=== PATIENT | male | born 1930 | race Asian ===

== ENCOUNTER 2017-09-14 03:47 | Inpatient (IN) | payer OTHER ==
--- NOTE | 2017-09-14 04:28 | EDPHY ---
H & P Time Seen by Provider: 09/14/17 03:51 HPI/ROS: CHIEF COMPLAINT: Shortness of breath HISTORY OF PRESENT ILLNESS: Patient is originally from [place] [facility], in [place] for 5 years, interviewed limited by language. Daughter acted as hot blaster with the consent of patient. Per daughter patient was seen at [facility] for some generalized abdominal pain yesterday, Tuesday, morning. He had had this upper abdominal pain with bloating for about 1 week. Not associated with nausea or vomiting. Some constipation. Per [facility] diagnosed with"gastritis". An ultrasound was ordered for later today at [facility]. Per daughter around 8:00 p.m. Last night patient had episode of shiverring. Prior to arrival his shivering returned and he had audible wheezing and was complaining of shortness of breath. He has never had this problem before. On arrival patient dyspnic with oxygen saturations to 90%. He denies chest pain. REVIEW OF SYSTEMS: Constitutional: No fever, some chills Eyes: No discharge. ENT: No sore throat. Cardiovascular: No chest pain, no palpitations. Respiratory: No cough, shortness of breath present Gastrointestinal: Abdominal pain, bloating. Some constipation. Genitourinary: No dysuria. Musculoskeletal: No back pain. Skin: No rashes. Neurological: No headache. General Appearance: Alert, no distress. Eyes: Pupils equal and round no pallor or injection. ENT, Mouth: Mucous membranes moist. Respiratory: There are no retractions, lungs are clear to auscultation. No wheezes Cardiovascular: Regular rate and rhythm. Gastrointestinal: Abdomen is soft and nontender, no masses, bowel sounds normal. Neurological: Awake and alert, no focal neurologic deficits. Skin: Warm and dry, no rashes. Some discrete raised erythematous lesions to left lower extremity. Musculoskeletal: Neck is supple nontender. Extremities are symmetrical, full range of motion, no edema. Psychiatric: Patient is cooperative, following commands, there is no agitation. Medical/surgical history: Hypertension, biopsy performed on skin lesions on left lower extremity yesterday. No surgeries. Social history: Living in [place] last 5 years. Previously in [facility] country of origin. Nonsmoker. Smoking Status: Never smoked Constitutional: Initial Vital Signs Temperature (C) 37.0 C 09/14/17 03:52 Heart Rate 111 H 09/14/17 03:52 Respiratory Rate 30 H 09/14/17 03:52 Blood Pressure 150/84 H 09/14/17 03:52 O2 Sat (%) 90 L 09/14/17 03:52 O2 Delivery Mode Nasal Cannula O2 (L/minute) 4 Allergies/Adverse Reactions: No Known Allergies Allergy (Unverified 09/14/17 03:51) Home Medications: Medication Instructions Recorded Lisinopril 09/14/17 Medical Decision Making - Diagnostics EKG Interpretation: EKG shows normal sinus rhythm with first-degree AV block and left anterior fascicular block. Rate of 98. No acute ST T-wave changes to suggest ischemia or infarct. Impression abnormal, nonspecific EKG. Imaging Results: Chest x-ray shows cardiomegaly, atelectasis, retrocardiac infiltrates verses other opacities noted. CT scan of chest, abdomen, pelvis shows no PE, likely COPD. Likely cholecystitis with thickened gallbladder wall, edema, hyperemic. No stones. Several small hepatic lesions nonspecific. Bilateral renal cysts. Mediastinal hilar lymphadenopathy. Discussed with Dr. Hong. Imaging: I viewed and interpreted images myself ED Course/Re-evaluation: Re-evaluation after CXR and oxygen placed, patient with no more dyspnea. Told son-in-law he feels better and could go home. 7:10 a.m. discussed with hospitalist, Dr. Delgado, accepted for admission. Also discussed with patient and family need for admit for hypoxia and further evaluation. Differential Diagnosis: Differential diagnosis includes but is not limited to pneumonia, CHF, pulmonary embolism, acute coronary syndrome, cholecystitis, bowel obstruction. After evaluation patient with likely COPD and new oxygen requirement of 4 liters/ minute by nasal cannula. Persistent recurrent abdominal pain likely related to gallbladder disease however no signs of peritonitis, perforation, sepsis. Plan is for admission for further evaluation. Discussed with hospitalist. Transfer arranged. - Data Points Laboratory Results: Laboratory Results 09/14/17 04:10 09/14/17 09/14/17 09/14/17 04:37 04:29 04:10 WBC 9.66 10^3/uL H 10^3/uL (3.80-9.50) RBC 4.19 10^6/uL L 10^6/uL (4.40-6.38) Hgb 13.0 g/dL L g/dL (13.7-17.5) Hct 39.7 % L % (40.0-51.0) MCV 94.7 fL fL (81.5-99.8) MCH 31.0 pg pg (27.9-34.1) MCHC 32.7 g/dL g/dL (32.4-36.7) RDW 12.3 % % (11.5-15.2) Plt Count 149 10^3/uL L 10^3/uL (150-400) MPV 11.2 fL fL (8.7-11.7) Neut % (Auto) 85.3 % H % (39.3-74.2) Lymph % (Auto) 7.9 % L % (15.0-45.0) Reynolds % (Auto) 5.6 % % (4.5-13.0) Eos % (Auto) 0.6 % % (0.6-7.6) Baso % (Auto) 0.2 % L % (0.3-1.7) Nucleat RBC Rel Count 0.0 % % (0.0-0.2) Absolute Neuts (auto) 8.24 10^3/uL H 10^3/uL (1.70-6.50) Absolute Lymphs (auto) 0.76 10^3/uL L 10^3/uL (1.00-3.00) Absolute Monos (auto) 0.54 10^3/uL 10^3/uL (0.30-0.80) Absolute Eos (auto) 0.06 10^3/uL 10^3/uL (0.03-0.40) Absolute Basos (auto) 0.02 10^3/uL 10^3/uL (0.02-0.10) Absolute Nucleated RBC 0.00 10^3/uL 10^3/uL (0-0.01) Immature Gran % 0.4 % % (0.0-1.1) Immature Gran # 0.04 10^3/uL 10^3/uL (0.00-0.10) D-Dimer POC Sodium 137 mEq/L mEq/L (135-145) POC Potassium 4.1 mEq/L mEq/L (3.3-5.0) POC Chloride 101.0 mEq/L mEq/L (97-110) POC Total CO2 22 mEq/L mEq/L (22-31) POC BUN 15 mg/dL mg/dL (7-23) POC Creatinine 1.2 mg/dL mg/dL (0.7-1.3) POC Glucose 132 mg/dL H mg/dL (70-100) POC Calcium 8.6 mg/dL mg/dL (8.5-10.4) POC Total Bilirubin 1.5 mg/dL H mg/dL (0.1-1.4) POC AST 71 IU/L H IU/L (17-59) POC ALT 60 IU/L IU/L (21-72) POC Alk Phosphatase 103 IU/L IU/L (38-126) POC Troponin I 0.01 ng/mL ng/mL (0.00-0.08) NT-Pro-B Natriuret Pep POC Total Protein 7.7 g/dL g/dL (6.3-8.2) POC Albumin 3.3 g/dL L g/dL (3.5-5.0) 09/14/17 09/14/17 04:10 04:10 WBC RBC Hgb Hct MCV MCH MCHC RDW Plt Count MPV Neut % (Auto) Lymph % (Auto) Reynolds % (Auto) Eos % (Auto) Baso % (Auto) Nucleat RBC Rel Count Absolute Neuts (auto) Absolute Lymphs (auto) Absolute Monos (auto) Absolute Eos (auto) Absolute Basos (auto) Absolute Nucleated RBC Immature Gran % Immature Gran # D-Dimer 2.79 ug/mLFEU H ug/mLFEU (0.00-0.50) POC Sodium POC Potassium POC Chloride POC Total CO2 POC BUN POC Creatinine POC Glucose POC Calcium POC Total Bilirubin POC AST POC ALT POC Alk Phosphatase POC Troponin I NT-Pro-B Natriuret Pep 574 pg/mL H pg/mL (0-450) POC Total Protein POC Albumin Medications Given: Discontinued Medications Albuterol/Ipratropium (Duoneb) 3 ml IH EDNOW ONE Stop: 09/14/17 06:55 Last Admin: 09/14/17 07:05 Dose: 3 ml Sodium Chloride (Ns) 500 mls @ 1,000 mls/hr IV EDNOW ONE PRN Reason: Protocol Stop: 09/14/17 05:41 Last Admin: 09/14/17 05:36 Dose: 500 mls Point of Care Test Results: Chemistry 09/14/17 09/14/17 04:37 04:29 POC Sodium 137 mEq/L mEq/L (135-145) POC Potassium 4.1 mEq/L mEq/L (3.3-5.0) POC Chloride 101.0 mEq/L mEq/L (97-110) POC Total CO2 22 mEq/L mEq/L (22-31) POC BUN 15 mg/dL mg/dL (7-23) POC Creatinine 1.2 mg/dL mg/dL (0.7-1.3) POC Glucose 132 mg/dL H mg/dL (70-100) POC Calcium 8.6 mg/dL mg/dL (8.5-10.4) POC Total Bilirubin 1.5 mg/dL H mg/dL (0.1-1.4) POC AST 71 IU/L H IU/L (17-59) POC ALT 60 IU/L IU/L (21-72) POC Alk Phosphatase 103 IU/L IU/L (38-126) POC Troponin I 0.01 ng/mL ng/mL (0.00-0.08) POC Total Protein 7.7 g/dL g/dL (6.3-8.2) POC Albumin 3.3 g/dL L g/dL (3.5-5.0) Departure - Departure Clinical Impression: Chronic obstructive pulmonary disease with acute exacerbation, Hypoxia Abdominal pain Qualifiers: Abdominal location: epigastric Qualified Code(s): R10.13 - Epigastric pain Condition: Fair Referrals: Patient,NotPresent [Primary Care Provider] - As per Instructions
[2017-09-14 04:47] LABS: PLATELET COUNT 149 10^3/uL (150-400)
--- NOTE | 2017-09-14 04:51 | CPEKG ---
Heart Rate: 98 RR Interval: 612 P-R Interval: 208 QRSD Interval: 74 QT Interval: 360 QTC Interval: 460 P Cleveland: 51 QRS Cleveland: -55 T Wave Cleveland: 58 EKG Severity - ABNORMAL ECG - EKG Impression: SINUS RHYTHM EKG Impression: LEFT ANTERIOR FASCICULAR BLOCK Electronically Signed By: Guerrero Fried 19-Sep-2017 02:40:27
[2017-09-14] MEDS ORDERED: NS 500 ML IV ONE (05:12)
[2017-09-14] MEDS ORDERED: IOPAMIDOL (ISOVUE 370) 100 ML BTL IV ONE (05:37)
[2017-09-14] MEDS ORDERED: IPRATROPIUM/ALBUTEROL 3 ML DEYVIAL IH ONE (06:54)
[2017-09-14] MEDS ORDERED: IPRATROPIUM/ALBUTEROL 3 ML DEYVIAL IH PRN (11:15)
[2017-09-14] MEDS ORDERED: ONDANSETRON 4 MG/2 ML VIAL IVP PRN (11:15)
[2017-09-14] MEDS ORDERED: traMADol 50 MG TAB PO PRN (11:15)
[2017-09-14] MEDS ORDERED: PROMETHAZINE HCL 25 MG/ML INJ IVP PRN (11:15)
[2017-09-14] MEDS ORDERED: HYDROmorphONE/DILAUDID 1 MG/ML INJ IVP PRN (11:15)
--- NOTE | 2017-09-14 11:46 | GHP ---
[f rep st] HISTORY AND PHYSICAL DATE OF ADMISSION: 09/14/2017 CHIEF COMPLAINT: Abdominal pain and shortness of breath. HISTORY: The patient is an 87-year-old male, originally from [facility], has been living with his josé miguel sanchez in [place] for the last 5 years. He presents with epigastric to right upper quadrant pain. This has been off and on for the last 6 months, but it is getting more frequent and increasingly more grace re, and he has sought care. When he has a pain episode, it is severe and intolerable and so bad he c annot even walk. It comes and goes. He also has episodes of shivering and shortness of breath with wheezing heard by the daughter. At first, she said that these episodes of shivering happen during an acute pain episode, but then she said he sometimes will get them for a period time after that. Ther e has been no weight loss or fever. PAST MEDICAL HISTORY: Hypertension. MEDICATIONS: Please see computerized record for full detailed list. ALLERGIES: No known drug allergies. SOCIAL HISTORY: No smoking. Occasional alcohol. Originally from [facility], believe lived in [facility] for a period of time. Living in [place] with his daughter for the last 5 years. REVIEW OF SYSTEMS: Complete review of systems obtained. Review of systems negative regarding consti tutional, HEENT, GI, pulmonary, cardiovascular, , hematology, skin, muscular, endocrine, psych, exc ept for positives noted as in HPI. FAMILY HISTORY: Reviewed, noncontributory to his presenting complaint. PHYSICAL EXAMINATION: GENERAL: Well-developed, well-nourished male, in no acute distress. VITAL SI GNS: Temperature is 36.5, pulse 68, blood pressure 111/54, saturating 97% on 4 L. EYES: Normal con junctivae. Pupils reactive to light. ENT: Normal ears and nose. Hearing intact. Normal lips and teeth. Oropharynx moist. NECK: Trachea midline. No thyromegaly. CHEST: Normal respiratory effort . Lungs clear to auscultation bilaterally. CARDIOVASCULAR: Regular rate and rhythm. No murmur. No lower extremity edema. ABDOMEN: Soft, nontender. No hepatosplenomegaly. SKIN: Warm, dry, intact , without rash. MUSCULOSKELETAL: No cyanosis or clubbing. Strength 5/5 upper and lower extremities . NEUROLOGIC: Cranial nerves intact. Normal sensation to light touch. PSYCHIATRIC: Alert and karina ented x3. Normal mood and affect. Normal judgment and insight. Normal memory. LABORATORY DATA: White count 9.66, hematocrit 39.7, platelets 149, sodium 137, potassium 4.1, chlori de 101, bicarb 22, BUN 15, creatinine 1.2, glucose 132. Total bilirubin is 1.5. AST is 71. D-dimer is 2.79. EKG viewed by me. My personal interpretation is normal sinus rhythm, no ST-T wave changes . Chest x-ray is negative. CT scan of the chest, abdomen and pelvis has not yet formally been read. I only have a prelim read, which is showing an abnormal gallbladder without stone. Common bile hussein t is dilated. There are some liver lesions. Abdominal ultrasound was also poor quality, shows calci fication of the gallbladder without stones. Same liver lesion still indeterminate but may represent metastatic disease. ASSESSMENT/PLAN: 1. Epigastric/right upper quadrant pain. This has been progressively worsening over the last 6 brody hs. There is evidence of possible liver metastases and gallbladder calcification without stone. I h sam spoken with Dr. Dias and asked for GI consultation. He will review studies. Could consider MRCP if further imaging felt to be of benefit. Could consider EGD to rule out peptic ulcer disease and/o r other findings. He may need a liver biopsy. 2. Shortness of breath. I suspect he is splinting due to his right upper quadrant pain. I do not c urrently hear any wheezing, but he can get a nebulizer if he does have evidence. Will start him on I S and control his pain. 3. Cor status: Full. 4. Admission status: Will admit to observation. Reevaluate tomorrow regarding ongoing need for hos pitalization. 5. Deep vein thrombosis prophylaxis: He is high risk. Will start Lovenox once need for procedures is ruled out. /[id number]/MODL
--- NOTE | 2017-09-14 13:46 | ASMTCMCOM ---
CM Note CM Note Notes: CM reviewed Pt's chart for D/C planning. The Pt is an 87 y/o male originally from [facility] and now living with his daughter in [place] the last 5 years. His ability to communicate in Cambodian is limited. In the ED his daughter provided translation. He initially presented in the ED with epigastric to right upper quadrant pain. It has been off and on for 6 months, but is getting more frequent and increasingly more severe. He also has episodes of shivering, SOB and wheezing. He has a hx of hypertension. prior to hospitalization he lived independently with his daughter. CM will follow Pt and D/C needs will be assessed throughout Pt's stay. D/C Plan: TBD Date Signed: 09/14/2017 01:45 PM Electronically Signed By:Moira Ordoñez
[2017-09-14] MEDS: D5W 1/2 NS 1,000 ML IV SCH (17:59)
[2017-09-14] MEDS ORDERED: ERTAPENEM 1 GM in NS 100 ML IV ONE (18:00)
--- NOTE | 2017-09-15 01:25 | GCON ---
[f rep st] CONSULTATION DATE OF CONSULTATION: 09/14/2017 CONSULTING PHYSICIAN: Alena Perez MD REASON FOR CONSULTATION: Epigastric abdominal pain/abnormal imaging. CHIEF COMPLAINT: Epigastric abdominal pain. HISTORY OF PRESENT ILLNESS: This patient is an 87-year-old male with no significant past medical history who presents to [facility] with complaints of epigastric abdominal pain. The patient does not speak Macedonian, thus, most of the history is obtained through the daughter who was present. In the last 6 months, he has had at least 4 attacks of epigastric pain. This pain can be very sharp and can last hours in duration. These episodes have become more progressive in length and intensity. The pain does not radiate to the back. He has had minimal complaints of nausea with these attacks. He denies any exacerbating or relieving factors to his symptoms. His weight has been stable. He denies any dysphagia, odynophagia, blood in stools, or change in his bowel habits. He has had some complaints of intermittent shortness of breath. I am asked by Dr. Perez to evaluate this patient in consultation regarding his epigastric abdominal pain. PAST MEDICAL HISTORY: Hypertension. PAST SURGICAL HISTORY: None. MEDICATIONS: Lisinopril ALLERGIES: NKDA SOCIAL HISTORY: No significant alcohol or tobacco use. FAMILY HISTORY: No history of esophageal or stomach cancer. REVIEW OF SYSTEMS: A 14-point comprehensive review of systems was asked. Pertinent positives and negatives per HPI. PHYSICAL EXAM: VITALS: Blood pressure 119/65, pulse 64, temperature 36.6, respirations 12. GENERAL: Awake, alert, oriented x3. No distress. HEENT: Anicteric. Moist mucosa. NECK: No JVD. CARDIOVASCULAR: Regular rate and rhythm. Positive S1, S2. No murmurs or gallops appreciated. LUNGS: Clear to auscultation bilaterally. No wheezes, rales, or rhonchi. ABDOMEN: Distended. Positive tenderness in the right upper quadrant to deep palpation. No guarding. No rebound. No splenomegaly noted. EXTREMITIES: No edema. NEUROLOGIC: 2 through 12 grossly intact. PSYCH: Normal affect. SKIN: No rash. Nonicteric. BLOOD WORK: WBC is 9.66, hemoglobin 13.0, hematocrit 39.7, platelets 149. Sodium 137, potassium 4.1, chloride 101, bicarb 22, BUN 15, creatinine 1.2. Alkaline phosphatase 103, AST 71, ALT 60. IMAGING: CT scan of the abdomen and pelvis with IV contrast: Thickening of the gallbladder wall with edema and inflammatory changes. Possible dilation of the common bile duct. No panc mass. ASSESSMENT AND PLAN: 1. Abdominal pain - epigastric. Intermittent. Suspect biliary cause? The images were reviewed with Radiology and suspect this is more consistent with acute cholecystitis. At this time, I recommend surgical consultation and case discussed with surgery. Hopefully, an IOC can be performed. He does have mild CBD dilation on imaging. Consider EUS/ERCP dependent on results of surgery. 2. Hypertension. Thank you for this consultation. /[id number]/MODL MTDD
[2017-09-15] MEDS: D5W 1/2 NS 1,000 ML IV SCH (03:29)
[2017-09-15 05:23] LABS: PLATELET COUNT 148 10^3/uL (150-400)
[2017-09-15] MEDS: ACETAMINOPHEN 325 MG TAB PO PRN (07:45)
--- NOTE | 2017-09-15 07:57 | SOAPPROG ---
SOANN Progress Note Assessment/Plan: Assessment: 87 MALE WITH RUQ PAIN FOR ONE WEEK/ CT SUGGESTS ACUTE VIVEK/ US INCONCLUSIVE/ LFTS SLIGHTLY ELEVATED ABD SOFT BUT TENDER RUQ CHEST CLEAR COR RR Plan:HIDA TO CONFIRM VIVEK PROBLEM THEN LAP VIVEK/ RISKS AND OPTIONS FULLY DISCUSSED 09/15/17 07:54 Objective: Vital Signs Temp Pulse Resp BP Pulse Ox 36.3 C 71 16 124/64 H 95 09/15/17 07:49 09/15/17 07:49 09/15/17 07:49 09/15/17 07:49 09/15/17 07:49 Laboratory Results 09/15/17 04:47 09/15/17 04:47 09/14/17 09/15/17 09/16/17 05:59 05:59 05:59 Intake Total 620 Balance 620 ICD10 Worksheet Patient Problems: Problems Problem Status Onset Abdominal pain Acute Chronic obstructive pulmonary disease with acute exacerbation Acute Hypoxia Acute
[2017-09-15] MEDS: LISINOPRIL 5 MG TAB PO SCH (08:21)
[2017-09-15] MEDS ORDERED: BUPIVACAINE 0.25% 30 ML SDV ONE (09:17)
[2017-09-15] MEDS ORDERED: HEPARIN 1000 UNIT/1 ML MDV ONE (09:17)
[2017-09-15] MEDS ORDERED: ceFAZolin 1 GM/5 ML SYR ONE (09:18)
--- NOTE | 2017-09-15 12:53 | HOSPPROG ---
Hospitalist Progress Note Assessment/Plan: * Acute cholecystitis -to OR today with Dr. Bonilla * Possible hepatic lesions -outpatient follow-up * SOB - suspect atelectasis due to splinting -CTA chest negative -continue IS * Anemia -follow Subjective: no new complaints. Objective: Vital Signs Temp Pulse Resp BP Pulse Ox 37.6 C 67 18 140/60 H 98 09/15/17 12:17 09/15/17 12:17 09/15/17 12:17 09/15/17 12:17 09/15/17 12:17 Laboratory Results 09/15/17 04:47 09/15/17 04:47 09/14/17 09/15/17 09/16/17 05:59 05:59 05:59 Intake Total [address] report reviewed - formal report much less concerning for malignancy in liver HIDA - non-visualization of GB d/w Dr. Dias - all c/w acute moy - Physical Exam Constitutional: no apparent distress, appears nourished, not in pain Cardiovascular: regular rate and rhythym, no murmur, rub, or gallop Respiratory: no respiratory distress, no rales or rhonchi, clear to auscultation Gastrointestinal: normoactive bowel sounds, soft, non-tender abdomen, no palpable masses Skin: no rashes or abrasions, no fluctuance, no induration Neurologic: AAOx3, sensation intact bilaterally Psychiatric: interacting appropriately, not anxious, not encephalopathic, thought process linear ICD10 Worksheet Patient Problems: Problems Problem Status Onset Abdominal pain Acute Chronic obstructive pulmonary disease with acute exacerbation Acute Hypoxia Acute
[2017-09-15] MEDS ORDERED: LR 1,000 ML IV ONE (13:03)
[2017-09-15] MEDS ORDERED: ROCURONIUM 100 MG/10 ML VIAL ONE (14:23)
[2017-09-15] MEDS ORDERED: PROPOFOL 200 MG/20 ML VIAL ONE (14:23)
[2017-09-15] MEDS ORDERED: fentaNYL 250 MCG/5 ML INJ ONE (14:29)
[2017-09-15] MEDS ORDERED: ERTAPENEM 1 GM in NS 100 ML IV ONE (14:30)
--- NOTE | 2017-09-15 14:47 | ASMTCMCOM ---
CM Note CM Note Notes: Per chart review for D/C planning ,Pt today had a Cholecystectomy Laparoscopy and was diagnosed with acute cholecystitis, possible hepatic lesions, SOB and anemia. CM to follow for D/C planning. D/C Plan: TBD Date Signed: 09/15/2017 02:46 PM Electronically Signed By:Moira Ordoñez
[2017-09-15] MEDS ORDERED: HYDROmorphONE/DILAUDID 1 MG/ML INJ IVP PRN (14:48)
[2017-09-15] MEDS ORDERED: NALOXONE HCL 0.4 MG/ML INJ IVP PRN (14:48)
[2017-09-15] MEDS ORDERED: ONDANSETRON 4 MG/2 ML VIAL IVP PRN (14:48)
--- NOTE | 2017-09-15 14:49 | PDANEPAE ---
ANE History of Present Illness Mariia Dominguez BETTY Past Medical History - Cardiovascular History Hx Hypertension: Yes - Pulmonary History Hx Oxygen in Use at Home: No Hx Sleep Apnea: No Sleep Apnea Screening Result - Last Documented: Positive - Endocrine History Hx Diabetes: No ANE Review of Systems Review of Systems: - Exercise capacity Exercise capacity: >=4 METS ANE Patient History - Allergies Allergies/Adverse Reactions: No Known Allergies Allergy (Unverified 09/14/17 03:51) - Home Medications Home Medications: Lisinopril [Zestril 5 mg (*)] 5 mg PO DAILY 09/14/17 [Last Taken 09/13/17] Multivitamins [Multivitamin (*)] 1 each PO DAILY 09/14/17 [Last Taken 09/13/17] - NPO status NPO Since - Liquids (Date): 09/14/17 NPO Since - Liquids (Time): 23:59 NPO Since - Solids (Date): 09/14/17 NPO Since - Solids (Time): 23:59 - Smoking Hx Smoking Status: Never smoked ANE Labs/Vital Signs - Labs Result Diagrams: 09/15/17 04:47 09/15/17 04:47 - Vital Signs Blood Pressure: 140/60 Heart Rate: 67 Respiratory Rate: 18 O2 Sat (%): 98 Height: 175.26 cm Weight: 91.7 kg ANE Physical Exam - Airway Neck exam: FROM Mallampati Score: Class 2 - Pulmonary Pulmonary: clear to auscultation - Cardiovascular Cardiovascular: regular rate and rhythym - ASA Status ASA Status: II ANE Anesthesia Plan Anesthesia Plan: general endotracheal anesthesia
[2017-09-15] MEDS ORDERED: DEXAMETHASONE 4 MG/ML VIAL ONE (15:33)
[2017-09-15] MEDS ORDERED: ONDANSETRON 4 MG/2 ML VIAL ONE (15:33)
[2017-09-15] MEDS ORDERED: LABETALOL HCL 5 MG/ML 20 ML MDV ONE (15:40)
[2017-09-15] MEDS ORDERED: SUGAMMADEX SODIUM 200 MG/2 ML VIAL IVP ONE (16:01)
--- NOTE | 2017-09-15 16:20 | POSTANESTH ---
Post Anesthetic Evaluation Cardiovascular Status: Normal, Stable Respiratory Status: Normal, Stable Level of Consciousness/Mental Status: Can Participate in Eval, Alert and Oriented Pain Control: Adequate, Prn Tx Ordered Nausea/Vomiting Control: Adequate, Prn Tx Ordered Complications Possibly Related to Anesthesia: None Noted
[2017-09-15] MEDS ORDERED: fentaNYL 100 MCG/2 ML INJ ONE (16:27)
[2017-09-15] MEDS: fentaNYL 100 MCG/2 ML INJ IVP PRN ×2 (16:28→16:48)
[2017-09-15] MEDS ORDERED: HYDROmorphONE/DILAUDID 1 MG/ML INJ ONE (17:05)
--- NOTE | 2017-09-15 18:34 | POSTOPPROG ---
Post Op Note Date of Operation: 09/15/17 Surgeon: Jonny Bonilla Anesthesiologist: Conor Anesthesia: GET(General Endotracheal) Pre-op Diagnosis: Acute cholecystitis Post-op Diagnosis: Severe acute cholecystitis with hydrops of the gallbladder Indication: Pain Procedure: Lap choly and drainage Findings: Severe markedly inflamed gallbladder with stones and very difficult anatomy Inf/Abcess present in the surg proc area at time of surgery?: Yes Depth: Organ Space EBL: 50-100 Complications: None Drains: Aubrey Christy Specimen(s): gallbladder
[2017-09-15] MEDS: D5W 1/2 NS W/ 20 KCl/L 1,000 ML IV SCH (18:50)
[2017-09-15] MEDS ORDERED: ALBUMIN 5% 500 ML IV ONE (19:00)
--- NOTE | 2017-09-15 22:38 | SOAPPROG ---
SOAP Progress Note Assessment/Plan: Assessment: Plan: 09/15/17 05:38 A/P 1. Abdominal pain- epigastric. Suspect cholecystitis. Surgery on board. Plans for surgery today. GI will sign off. Please call if needed. Subjective: cc: Follow up abdominal pain Still complaining of pain. Objective: Vital Signs Temp Pulse Resp BP Pulse Ox 36.4 C 73 16 107/50 L 93 09/15/17 20:30 09/15/17 20:30 09/15/17 20:30 09/15/17 20:30 09/15/17 20:30 Laboratory Results 09/15/17 04:47 09/15/17 04:47 09/14/17 09/15/17 09/16/17 05:59 05:59 05:59 Intake Total 620 2660 Output Total 580 Balance 620 2080 Physical Exam - Physical Exam General Appearance: alert, no apparent distress EENT: No scleral icterus (R), No scleral icterus (L) Respiratory: lungs clear, normal breath sounds, No crackles, No rales, No rhonchi Cardiac/Chest: regular rate, rhythm, No bradycardia, No tachycardia Abdomen: normal bowel sounds, distended, No non-tender (tender in ruq), No guarding, No rebound Neuro/Psych: normal mood/affect, oriented x 3, No abnormal tow mate II-XII ICD10 Worksheet Patient Problems: Problems Problem Status Onset Abdominal pain Acute Chronic obstructive pulmonary disease with acute exacerbation Acute Hypoxia Acute
[2017-09-16] MEDS: D5W 1/2 NS W/ 20 KCl/L 1,000 ML IV SCH ×2 (04:22→18:34)
[2017-09-16] MEDS: ACETAMINOPHEN 325 MG TAB PO PRN (04:23)
[2017-09-16 04:44] LABS: PLATELET COUNT 145 10^3/uL (150-400)
[2017-09-16] MEDS: ERTAPENEM 1 GM in NS 100 ML IV SCH (09:07)
[2017-09-16] MEDS: oxyCODONE IR 5 MG TAB PO PRN ×2 (09:07→17:10)
[2017-09-16] MEDS: ENOXAPARIN 40 MG/0.4 ML SYR SC SCH (09:09)
[2017-09-16] MEDS: LISINOPRIL 5 MG TAB PO SCH (09:23)
--- NOTE | 2017-09-16 09:33 | ASMTCMCOM ---
CM Note CM Note Notes: CM met with Pt and his daughter; Pt's daughter served as the cw operator. Pt states that he is feeling better. PT eval indicated there was not a need for PT. Prior to hospitalization Pt was living with his daughter. He will return to her home. No D/C needs are anticipated. CM will follow. D/C Plan: Independent Date Signed: 09/16/2017 09:32 AM Electronically Signed By:Moira Ordoñez
--- NOTE | 2017-09-16 10:36 | SOAPPROG ---
SOAP Progress Note Assessment/Plan: Assessment: 87 y/o M s/p lap moy for severe cholecystitis POD #1 S: Sitting in chair. Daughter is present and interpreting. Pt does c/o incisional pain, otherwise doing well. passing flatus, but no BM. O: Alert Afebrile RRR No increased WOB Abdomen: firm and distended, incision sites and dressing are cdi, normoactive bowel sounds. Plan: Advance diet. Will keep him inpatient given the severity of his cholecystitis. 09/16/17 10:25 Objective: Vital Signs Temp Pulse Resp BP Pulse Ox 36.4 C 88 18 91/55 L 92 09/16/17 08:00 09/16/17 08:00 09/16/17 08:00 09/16/17 09:23 09/16/17 08:00 Laboratory Results 09/16/17 04:23 09/16/17 04:23 09/15/17 09/16/17 09/17/17 05:59 05:59 05:59 Intake Total 620 3812 Output Total 865 30 Balance 620 2947 -30 ICD10 Worksheet Patient Problems: Problems Problem Status Onset Abdominal pain Acute Chronic obstructive pulmonary disease with acute exacerbation Acute Hypoxia Acute
--- NOTE | 2017-09-16 11:24 | PDMN ---
Medical Necessity Medical necessity: MCG: S365 Cholecystectomy by laparascopy: extended stay for severe acute cholecystitis w/ hydrops of gall bladder, severe markedly inflamed gallbladder with stones and very difficult anatomy. 87 y/o Pt cont w/ abd pain , anemia, hypocalcemia, increasing LFTs, hypotensive. Continuing on IV fluids, IV antiemetics, IV antibiotics. Greater than 2MN med necessity care needed.
--- NOTE | 2017-09-16 12:13 | HOSPPROG ---
Hospitalist Progress Note Assessment/Plan: * Acute cholecystitis s/p lap moy -extremely severe, hydrops, pus, difficult anatomy per Dr. Bonilla -per surgery - keep inpatient -IV Invanz * Possible hepatic lesions -outpatient follow-up * SOB - suspect atelectasis due to splinting -CTA chest negative -continue IS * Anemia -follow Subjective: Doing much better, at lunch, O2 sats still borderline Objective: Vital Signs Temp Pulse Resp BP Pulse Ox 36.9 C 75 16 93/53 L 96 09/16/17 11:37 09/16/17 11:37 09/16/17 11:37 09/16/17 11:37 09/16/17 11:37 Laboratory Results 09/16/17 04:23 09/16/17 04:23 09/15/17 09/16/17 09/17/17 05:59 05:59 05:59 Intake Total 2337 580 Output Total 865 50 Balance 1472 530 d/w Dr. Bonilla - terrible gallbladder at surgery - very difficult - Physical Exam Constitutional: no apparent distress, appears nourished, not in pain Cardiovascular: regular rate and rhythym, no murmur, rub, or gallop Respiratory: no respiratory distress, no rales or rhonchi, clear to auscultation Gastrointestinal: normoactive bowel sounds, soft, non-tender abdomen, no palpable masses Skin: no rashes or abrasions, no fluctuance, no induration Neurologic: AAOx3, sensation intact bilaterally Psychiatric: interacting appropriately, not anxious, not encephalopathic, thought process linear ICD10 Worksheet Patient Problems: Problems Problem Status Onset Abdominal pain Acute Chronic obstructive pulmonary disease with acute exacerbation Acute Hypoxia Acute
[2017-09-16] MEDS ORDERED: NS 500 ML IV ONE (13:00)
[2017-09-17 04:54] LABS: PLATELET COUNT 165 10^3/uL (150-400)
[2017-09-17] MEDS ORDERED: POLYETHYLENE GLYCOL 3350 17 GM PKT PO PRN (08:19)
[2017-09-17] MEDS ORDERED: MAGNESIUM HYDROXIDE 30 ML UDCUP PO PRN (08:19)
[2017-09-17] MEDS ORDERED: BISACODYL 10 MG SUPP PR PRN (08:19)
[2017-09-17] MEDS: LISINOPRIL 5 MG TAB PO SCH (08:52)
[2017-09-17] MEDS: ENOXAPARIN 40 MG/0.4 ML SYR SC SCH (08:53)
[2017-09-17] MEDS: SENNOSIDES/DOCUSATE SODIUM TAB PO SCH ×2 (08:53→20:02)
[2017-09-17] MEDS: ACETAMINOPHEN 325 MG TAB PO PRN ×2 (08:53→22:15)
[2017-09-17] MEDS: ERTAPENEM 1 GM in NS 100 ML IV SCH (08:54)
--- NOTE | 2017-09-17 09:22 | SOAPPROG ---
SOAP Progress Note Assessment/Plan: Assessment: 87 y/o M s/p lap moy for severe cholecystitis POD #1 S: Sitting in chair. Daughter is present and interpreting. Pt does c/o incisional pain, otherwise doing well. passing flatus, but no BM. O: Alert Afebrile RRR No increased WOB Abdomen: firm and distended, incision sites and dressing are cdi, normoactive bowel sounds. Plan: Advance diet. Will keep him inpatient given the severity of his cholecystitis. 09/16/17 10:25 09/17/17 09:20 Son is present and translating for pt. Still has some pain. Tolerating regular diet. Passing gas, but no BM. C/o difficulty catching his breath last night, but is improved now. Sating in the mid 90s on 2L. Abdominal xray this am shows ileus. Will order bowel protocol for constipation. Objective: Vital Signs Temp Pulse Resp BP Pulse Ox 37.1 C 88 14 117/63 94 09/17/17 07:40 09/17/17 07:40 09/17/17 07:40 09/17/17 08:52 09/17/17 07:40 Laboratory Results 09/17/17 04:37 09/16/17 04:23 09/16/17 09/17/17 09/18/17 05:59 05:59 05:59 Intake Total 7864 9100 Output Total 865 1050 Balance 1472 1745 ICD10 Worksheet Patient Problems: Problems Problem Status Onset Abdominal pain Acute Chronic obstructive pulmonary disease with acute exacerbation Acute Hypoxia Acute
--- NOTE | 2017-09-17 16:34 | GOP ---
[f rep st] OPERATIVE REPORT DATE OF OPERATION: 09/15/2017 SURGEON: Jonny Bonilla MD SCIENTIST/ENGINEER: None. PREOPERATIVE DIAGNOSIS: Acute cholecystitis. POSTOPERATIVE DIAGNOSIS: Acute cholecystitis. PROCEDURE PERFORMED: Lap moy. FINDINGS: The patient was found to have severe significant subacute and acute cholecystitis. The ga llbladder was distended, filled with pus. There were multiple stones. The ductal anatomy was very d ifficult to delineate. ESTIMATED BLOOD LOSS: Less than 200 mL. DESCRIPTION OF PROCEDURE: Patient was taken to the operating room where he received satisfactory gen eral endotracheal anesthesia by Dr. Perdomo. He was placed in supine position and prepped and draped i n the usual sterile fashion. A periumbilical incision was made. A Veress needle inserted. Pneumope ritoneum was established. A trocar was introduced. Laparoscope introduced. Good visualization was obtained. Three other trocars were placed in the upper abdomen under direct vision. The gallbladder was completely obscured from view. Using the Harmonic Scalpel and/or electrocautery, the omentum wa s dissected off the gallbladder until it could be exposed. Dissection extended down the full length of the gallbladder with the cystic triangle area was quite perilous. The area of the common duct was identified by identifying hepatic artery. The gallbladder was then taken down from the fundus retro grade dissecting it off the hepatic fossa. Hemostasis was obtained with the Harmonic Scalpel and/or electrocautery. Dissection extended well down to the cystic triangle area. The gallbladder was free d up as much as possible from all adhesions. The very end of the gallbladder was exposed. This was freshened up as much as possible and care made to avoid the common bile duct. The end of the gallbla dder was then stapled across with the Endo-JADA stapler and placed in a specimen bag and extracted thr ough the upper midline port site. Hemostasis was assured. The wound was copiously irrigated. Some Andrew powder was placed in the hepatic fossa bed and a 15 round silicone KRZYSZTOF drain was brought out th rough one of the trocar sites and placed in Morison's pouch and secured to the skin with a silk sutur e. Trocars removed under direct vision. Trocar sites were closed with 0 Vicryl for the fascia, 4-0 Monocryl subcuticular stitch for the skin and all sites were infiltrated with 0.5% Marcaine. There w ere no complications. Tolerated procedure well, taken to recovery room in good condition. /[id number]/MODL
--- NOTE | 2017-09-17 18:25 | HOSPPROG ---
Hospitalist Progress Note Assessment/Plan: The patient is an 87-year-old male who was admitted for acute cholecystitis. ASSESSMENT/PLAN: Acute cholecystitis, status post lap choly Anemia, stable Possible hepatic lesions Atelectasis, postop Possible postop ileus -IV Invanz postop -Ambulate -ISU -Outpt FU for possible hepatic lesions. VTE prophylaxis: Ambulatory. DC Lovenox. Code Status: Full code Disposition: Med surg This patient is new to me. Reviewed patient's chart/records for this visit. ____ Subjective: Saw pt ambulating in hallway w/ his son today. Pt feels well, denies compaints. No BM, but passes gas. Tolerates diet. Objective: Vital Signs Temp Pulse Resp BP Pulse Ox 36.7 C 80 14 115/62 93 09/17/17 15:11 09/17/17 15:11 09/17/17 15:11 09/17/17 15:11 09/17/17 15:11 Laboratory Results 09/17/17 04:37 09/16/17 04:23 09/16/17 09/17/17 09/18/17 05:59 05:59 05:59 Intake Total 2337 4355 100 Output Total 865 1050 Balance 1472 3305 100 OBJECTIVE: Physical Exam: General: The patient is an elderly male who is alert and in no acute distress. HEENT: normocephalic, extraocular movements intact, conjunctivae clear. Mucous membranes moist. Neck: trachea midline, no visible masses. Abd: Nondistended. Musculoskeletal: Normal muscle tone/bulk. Neuro: cranial nerves II XII grossly intact. Intact gross motor and sensory function. Psych: Appropriate mood and appropriate affect. Skin: No pallor. No petechiae. Heme/lymph: No peripheral edema at bilateral lower extremities. Labs/Imaging/Other Tests: Personally reviewed/interpreted. Abd XR - large gas filled bowel loops c/w ileus ICD10 Worksheet Patient Problems: Problems Problem Status Onset Abdominal pain Acute Chronic obstructive pulmonary disease with acute exacerbation Acute Hypoxia Acute
[2017-09-18 08:27] VITALS: BP 138/70
--- NOTE | 2017-09-18 09:12 | SOAPPROG ---
SOAP Progress Note Assessment/Plan: Assessment: 87 y/o M s/p lap moy for severe cholecystitis POD #1 S: Sitting in chair. Daughter is present and interpreting. Pt does c/o incisional pain, otherwise doing well. passing flatus, but no BM. O: Alert Afebrile RRR No increased WOB Abdomen: firm and distended, incision sites and dressing are cdi, normoactive bowel sounds. Plan: Advance diet. Will keep him inpatient given the severity of his cholecystitis. 09/16/17 10:25 09/17/17 09:20 Son is present and translating for pt. Still has some pain. Tolerating regular diet. Passing gas, but no BM. C/o difficulty catching his breath last night, but is improved now. Sating in the mid 90s on 2L. Abdominal xray this am shows ileus. Will order bowel protocol for constipation. 09/18/17 09:11 Doing very well. Tolerating regular diet. Passing gas and had BM this am. Denies pain. Still draining moderate amount of serosanguious fluid into KRZYSZTOF drain. Ok to go from surgery standpoint. Leave drain in place upon discharge. Follow up with Dr. Bonilla on Tuesday. Objective: Vital Signs Temp Pulse Resp BP Pulse Ox 37.1 C 80 18 138/70 H 93 09/18/17 08:00 09/18/17 08:00 09/18/17 08:00 09/18/17 08:00 09/18/17 08:00 Laboratory Results 09/17/17 04:37 09/16/17 04:23 09/17/17 09/18/17 09/19/17 05:59 05:59 05:59 Intake Total 4355 400 Output Total 1050 950 Balance 3305 400 -950 ICD10 Worksheet Patient Problems: Problems Problem Status Onset Abdominal pain Acute Chronic obstructive pulmonary disease with acute exacerbation Acute Hypoxia Acute
[2017-09-18] MEDS: ERTAPENEM 1 GM in NS 100 ML IV SCH (09:35)
[2017-09-18] MEDS: LISINOPRIL 5 MG TAB PO SCH (09:35)
[2017-09-18] MEDS: SENNOSIDES/DOCUSATE SODIUM TAB PO SCH (09:36)
--- NOTE | 2017-09-18 12:12 | ASDISCHSUM ---
Discharge Information Plan Status:Home with No Needs Medically Cleared to Leave:09/18/2017 Discharge Date:09/18/2017 11:21 AM CM D/C Disposition:Home, Routine, Self-Care ADT D/C Disposition:Home, Routine, Self-Care Projected Discharge Date:09/18/2017 11:21 AM Transportation at D/C:Family Discharge Delay Reason: Follow-Up Date:09/18/2017 11:21 AM Discharge Slot:1 - 8:01 am - 12:00 noon Final Diagnosis:Severe cholecystitis, s/p lap moy, drain in place Placement Information Patient Contact Information Contact Name:KARISHMA Relationship:Other Address:[address] [place] [address] Work Phone: [facility] Phone: [facility]/Zip Code:[place] [address] Email: Financial Information Financial Class:Self-Pay Primary Plan Desc:WE CARE Primary Plan Number:99 Secondary Plan Desc: Secondary Plan Number: Assessment Information LACE LACE Length of stay for Answers: 3 days current admission Acuity / Level of Answers: Yes Care: Did the patient have an inpatient admission? Comorbidities - select Answers: Other Notes: HTN all that apply # of Emergency department Answers: 1-2 visits in the last 6 months Score: 8 Date Signed: 09/18/2017 12:09 PM Electronically Signed By:Delmy Cortes RN [facility] Progress Note CM Note CM Note Notes: CM reviewed Pt's chart for D/C planning. The Pt is an 87 y/o male originally from [facility] and now living with his daughter in [place] the last 5 years. His ability to communicate in [place] is limited. In the ED his daughter provided translation. He initially presented in the ED with epigastric to right upper quadrant pain. It has been off and on for 6 months, but is getting more frequent and increasingly more severe. He also has episodes of shivering, SOB and wheezing. He has a hx of hypertension. prior to hospitalization he lived independently with his daughter. CM will follow Pt and D/C needs will be assessed throughout Pt's stay. D/C Plan: TBD Date Signed: 09/14/2017 01:45 PM Electronically Signed By:Moira Ordoñez [facility] CM Progress Note CM Note CM Note Notes: Per chart review for D/C planning ,Pt today had a Cholecystectomy Laparoscopy and was diagnosed with acute cholecystitis, possible hepatic lesions, SOB and anemia. CM to follow for D/C planning. D/C Plan: TBD Date Signed: 09/15/2017 02:46 PM Electronically Signed By:Moira Ordoñez [facility] CM Progress Note CM Note CM Note Notes: CM met with Pt and his daughter; Pt's daughter served as the lead bi developer. Pt states that he is feeling better. PT diane indicated there was not a need for PT. Prior to hospitalization Pt was living with his daughter. He will return to her home. No D/C needs are anticipated. CM will follow. D/C Plan: Independent Date Signed: 09/16/2017 09:32 AM Electronically Signed By:Moira Ordoñez Case Management Discharge Plan Note Case Management Discharge Discharge Order Complete? Answers: Yes Followup Appointment 09/21/2017 12:00 AM Patient to Obtain Answers: via Family Medications Transportation Arranged Answers: Family/Friends Transport will Pick (Date 09/18/2017 12:00 AM & Time) EMTALA Complete Answers: No Notes: N/A Case Management Transport Answers: No Notes: N/A Form Complete Faxed Final Orders Answers: No Notes: N/A Agency/Facility Transfer Answers: No Notes: N/A Report Printed & Faxed to Receiving Agency Family Notified Answers: Yes Notes: Family bedside Discharge Comments Notes: Reviewed chart regarding discharge plan of care, pt's progress. Pt to discharge home independently with family support and no identified needs. No IM signed, not applicable. Pt to follow up as directed. CM available for any further issues or concerns. Discharge Plan: Home independently with family support Date Signed: 09/18/2017 12:11 PM Electronically Signed By:Delmy Cortes RN Intervention Information
--- NOTE | 2017-09-18 15:56 | GDS ---
[f rep st] DISCHARGE SUMMARY DIAGNOSES: 1. Acute cholecystitis status post laparoscopic cholecystectomy. 2. Hypertension. 3. Mild hypoxic respiratory failure due to atelectasis and splinting. 4. Anemia. 5. Hepatic lesions needing outpatient followup. PROCEDURES DONE: 1. Chest and thoracic CT angiogram. Negative for pulmonary embolism. 2. Abdominal CT. Suspect cholecystitis, hepatic lesions, probable renal cysts. 3. Abdominal ultrasound. 4. HIDA scan. 5. Laparoscopic cholecystectomy. CONSULTATIONS: Jonny Bonilla MD. HOSPITAL COURSE: The patient is a [facility] man who was admitted with abdominal pain and shortness of breath. He is an 87-year-old, originally from [facility], and living with his daughter in [place]. He p resents with abdominal pain and had the above procedures done. He was initially diagnosed with acute cholecystitis and underwent surgery on September 15. He did well. However, he was quite sick from [facility] and was on antibiotics postop. On the day of discharge, he is doing much better. He ate a good breakfast with no symptoms. He has some very mild incisional pain that does not require significant pain medications. Discussed with General Surgery who feel he is stable to go home. CONDITION ON DISCHARGE: Good. Vital signs are stable. He is requiring very low-dose, low-flow oxyg en, and will do a room air challenge prior to discharge. DISCHARGE MEDICATIONS: Please see discharge medication form. Followup will be with Dr. Bonilla on Tue. Total time on hospitalization and coordination of care is 35 minutes. /[id number]/MODL
== END 2017-09-18 11:21 | disposition home or self-care (01) | DRG 417 ==
LOC: CED 03:47 → CEDHOLD 07:11 → F1N 09:13 → OBSVTOIN 09-15 13:05
PROVIDERS: ADMIT Student in an Organized Health Care Education/Training Program; ATTEND Internal Medicine
PROC: 0FT44ZZ Resection of Gallbladder, Percutaneous Endoscopic Approach (ICD-10-PCS; principal; 2017-09-15 12:15)
DX: K81.0 Acute cholecystitis (principal); K82.1 Hydrops of gallbladder; J96.91 Respiratory failure, unspecified with hypoxia; J98.11 Atelectasis; K76.9 Liver disease, unspecified; D64.9 Anemia, unspecified; I10 Essential (primary) hypertension; L98.9 Disorder of the skin and subcutaneous tissue, unspecified
CPT/HCPCS: 71046-PO; 71275-PO; 74177-PO; 76705-PO; 80053-PO; 84484-PO; 97110-GP; 97116-GP; 97161-GP; 97165-GO; A9537; G0378; J1100; J1170; J1335; J1650; J2270; J2405; J2704; J3010; P9041; Q9967